=== PATIENT | male | born 1965 | race Caucasian/White ===

== ENCOUNTER 2024-08-31 13:33 | Emergency (ER) | payer OTHER, SELFPAY ==
[2024-08-31 13:48] VITALS: BP 167/104
[2024-08-31 14:12] LABS: % Basophils 0.6 % (0-2); % Eosinophils 0.4 % (0-6); % Immature Granulocytes 0.4 % (0-0.5); % Lymphocytes 10.8 % (20.5-51.1); % Monocytes 6.8 % (1.7-9.3); Absolute Basophils 0.1 10^3/uL (0-0.2); Absolute Eosinophils 0.1 10^3/uL (0-0.7); Absolute Immature Granulocytes 0.1 10^3/uL (0-0.05); Absolute Monocytes 1.2 10^3/uL (0.1-0.6); Absolute Neutrophils 14.6 10^3/uL (1.4-6.5); Hematocrit 48.7 % (39.0-52.0); Hemoglobin 15.7 g/dL (13.0-18.0); Mean Corp Hgb Conc. 32.2 g/dL (33.0-37.0); Mean Corpuscular Hgb 25.4 pg (27.0-31.0); Mean Corpuscular Volume 78.8 fL (80.0-94.0); Mean Platelet Volume 9.2 fL (7.4-10.4); Nucleated Red Blood Cells % 0 % (-); Platelet Count 398 10^3/uL (130-400); Red Blood Cell Count 6.18 10^6/uL (4.70-6.10); Red Cell Dist. Width 15.4 % (11.5-14.5); White Blood Cell Count 18.1 10^3/uL (4.8-10.8)
[2024-08-31 14:25] LABS: ALT (SGPT) 56 U/L (0-50); AST (SGOT) 41 U/L (17-59); Albumin 4.7 g/dl (3.5-5.0); Alkaline Phosphatase 114 U/L (38-126); Blood Urea Nitrogen 16 mg/dl (9-20); Calcium 9.4 mg/dl (8.4-10.2); Carbon Dioxide 26 mmol/L (22-30); Chloride 101 mmol/L (98-107); Glucose 98 mg/dl (70-99); Potassium 4.3 mmol/L (3.5-5.1); Sodium 136 mmol/L (135-145); Total Bilirubin 0.6 mg/dl (0.2-1.3); Total Protein 7.6 g/dl (6.3-8.2); eGFR > 60.00
--- NOTE | 2024-08-31 14:28 | ED.GENMED ---
ED Provider Triage
<Carter Trammell PA-C - Last Filed: 08/31/24 14:29>
-
Patient seen by provider in Triage?: Seen in Triage
Attestation: A medical screening examination has been initiated by a qualified medical provider. Based on the assessment performed at this time, it has been determined that an emergent medical condition may exist and the patient has been informed
that further medical evaluation and possible additional diagnostic testing may be needed.
HPI: 58-year-old male presenting to the ER for evaluation of urinary symptoms. Treated for urinary tract infection 2 weeks ago, completed antibiotics and felt better, symptoms started 5 days later again, this time with urethral discharge and
persistent dysuria, frequency and urgency. Patient states sexually active with only 1 partner, no concern for STI. Was on Macrobid for her first infection and completed this. Urine sent. Will send off for STI testing as well. Patient otherwise
stable
GENERAL: Alert , in no apparent distress
EYE: No visual abnormalities.
NECK: Trachea midline
ENT: No visible abnormalities.
LUNGS: No acute respiratory distress
NEUROLOGICAL: Alert and oriented
SKIN: Skin intact. No visible changes.
MUSCULOSKELETAL: Moving extremities normally
PSYCH: Normal and appropriate interaction.
This is a medical evaluation conducted in person to initiate diagnostic evaluation and provide initial therapeutics. Please see further documentation by the treating clinician.
History of Present Illness
<Carter Trammell PA-C - Last Filed: 08/31/24 14:29>
General
Chief Complaint: Urinary Symptoms
Time Seen by Provider: 08/31/24 16:56
<Kiran Jeronimo PA-C - Last Filed: 08/31/24 23:17>
History of Present Illness
History of Present Illness:
58-year-old male with no known past medical history presents to the emergency department for evaluation of dysuria, urgency, and urinary burning for the past day, noticed yellow-green discharge this morning. Was seen by his primary care physician
at the beginning of August treated empirically for UTI with ciprofloxacin 500 mg. Initial urine culture was positive for lactobacillus and follow-up urine culture 2 days ago was negative for growth. Patient denies any fevers or chills, denies any
abdominal pain. Reports urinary dribbling and difficulty with voiding as well
Review of Systems
<Kiran Jeronimo PA-C - Last Filed: 08/31/24 23:17>
Review of Systems
Allergies reviewed?: Yes
All Other Systems: ROS reviewed and negative except as documented in HPI and ROS
Phy Exam
<Kiran Jeronimo PA-C - Last Filed: 08/31/24 23:17>
Physical Exam
Physical Exam:
GEN: Well appearing, NAD, WDWN
HEENT: Oral mucosa moist, no scleral icterus
Cardiac: Regular rate
Lung: No respiratory distress, no tachypnea
Abdomen: Mildly distended, grossly nontender
MSK: No gross deformity or injuries
Skin: Good color, no pallor or jaundice, no rashes
Neuro: AO x3, moves all extremities freely
Psych: Calm, cooperative
Course
<Carter Trammell PA-C - Last Filed: 08/31/24 14:29>
Orders/Labs/Results
Orders:
Orders
08/31/24 13:58
Complete Blood Count/With Diff Urgent
Comprehensive Metabolic Panel Urgent
08/31/24 14:25
Urinalysis Urgent
Date Specimen was Collected: 08/31/24
Time Specimen was Collected: 13:54
Urine Microscopic Urgent
Date Specimen was Collected: 08/31/24
Time Specimen was Collected: 13:54
Chlamydia/GC by PCR Urgent
[facility] Source: Urine
Specimen Description:
Source:: URINE
Date Specimen was Collected: 08/31/24
Time Specimen was Collected: 14:25
08/31/24 17:37
0.9% Sodium Chloride 1000 ml [Nss] 1,000 ml IV BOLUS
CefTRIAXone [Rocephin] 1,000 mg IV NOW STA
08/31/24 17:42
Lactic Acid Q4H
Comment: CANCEL 2nd LACTIC ACID IF 1st LACTIC ACID IS LESS THAN 2
Blood Culture Q30M
[facility] Source: Blood/Venous
Specimen Description:
08/31/24 17:52
Mondragon Placement- Treatment ONCE
Reason for insertion: Acute Retention
08/31/24 17:56
Blood Culture Q30M
[facility] Source: Blood/Venous
Specimen Description:
Abnormal Lab Results
08/31/24 08/31/24
13:58 14:25
WBC 18.1 H 10^3/uL
(4.8-10.8)
RBC 6.18 H 10^6/uL
(4.70-6.10)
MCV 78.8 L fL
(80.0-94.0)
MCH 25.4 L pg
(27.0-31.0)
MCHC 32.2 L g/dL
(33.0-37.0)
RDW 15.4 H %
(11.5-14.5)
Abs Immat Gran (auto) 0.1 H 10^3/uL
(0-0.05)
Absolute Neuts (auto) 14.6 H 10^3/uL
(1.4-6.5)
Absolute Monos (auto) 1.2 H 10^3/uL
(0.1-0.6)
Neutrophils % 81.0 H %
(42.2-75.2)
Lymphocytes % 10.8 L %
(20.5-51.1)
ALT 56 H U/L
(0-50)
Urine Occult Blood 3+ A
(Negative)
Ur Leukocyte Esterase 2+ A
(Negative)
Urine WBC 60-70 A /HPF
(0-5)
Urine Bacteria Few A
(Negative)
Urine Albumin 2+ A
(Neg - Trace)
08/31/24 13:58
08/31/24 13:58
Vital Signs
Initial and Last Documented VS:
Initial Vital Signs
Temp Pulse Resp BP Pulse Ox
98.4 F 106 18 167/104 100
08/31/24 13:48 08/31/24 13:48 08/31/24 13:48 08/31/24 13:48 08/31/24 13:48
Last Documented Vital Signs
Temp Pulse Resp BP Pulse Ox
98.4 F 106 18 168/98 96
08/31/24 17:27 08/31/24 13:48 08/31/24 13:48 08/31/24 19:02 08/31/24 19:15
<Kiran Jeronimo PA-C - Last Filed: 08/31/24 23:17>
Orders/Labs/Results
Orders:
Orders
08/31/24 13:58
Complete Blood Count/With Diff Urgent
Comprehensive Metabolic Panel Urgent
08/31/24 14:25
Urinalysis Urgent
Date Specimen was Collected: 08/31/24
Time Specimen was Collected: 13:54
Urine Microscopic Urgent
Date Specimen was Collected: 08/31/24
Time Specimen was Collected: 13:54
Chlamydia/GC by PCR Urgent
[facility] Source: Urine
Specimen Description:
Source:: URINE
Date Specimen was Collected: 08/31/24
Time Specimen was Collected: 14:25
08/31/24 17:37
0.9% Sodium Chloride 1000 ml [Nss] 1,000 ml IV BOLUS
CefTRIAXone [Rocephin] 1,000 mg IV NOW STA
08/31/24 17:42
Lactic Acid Q4H
Comment: CANCEL 2nd LACTIC ACID IF 1st LACTIC ACID IS LESS THAN 2
Blood Culture Q30M
[facility] Source: Blood/Venous
Specimen Description:
08/31/24 17:52
Mondragon Placement- Treatment ONCE
Reason for insertion: Acute Retention
08/31/24 17:56
Blood Culture Q30M
[facility] Source: Blood/Venous
Specimen Description:
Abnormal Lab Results
08/31/24 08/31/24
13:58 14:25
WBC 18.1 H 10^3/uL
(4.8-10.8)
RBC 6.18 H 10^6/uL
(4.70-6.10)
MCV 78.8 L fL
(80.0-94.0)
MCH 25.4 L pg
(27.0-31.0)
MCHC 32.2 L g/dL
(33.0-37.0)
RDW 15.4 H %
(11.5-14.5)
Abs Immat Gran (auto) 0.1 H 10^3/uL
(0-0.05)
Absolute Neuts (auto) 14.6 H 10^3/uL
(1.4-6.5)
Absolute Monos (auto) 1.2 H 10^3/uL
(0.1-0.6)
Neutrophils % 81.0 H %
(42.2-75.2)
Lymphocytes % 10.8 L %
(20.5-51.1)
ALT 56 H U/L
(0-50)
Urine Occult Blood 3+ A
(Negative)
Ur Leukocyte Esterase 2+ A
(Negative)
Urine WBC 60-70 A /HPF
(0-5)
Urine Bacteria Few A
(Negative)
Urine Albumin 2+ A
(Neg - Trace)
08/31/24 13:58
08/31/24 13:58
Vital Signs
Initial and Last Documented VS:
Initial Vital Signs
Temp Pulse Resp BP Pulse Ox
98.4 F 106 18 167/104 100
08/31/24 13:48 08/31/24 13:48 08/31/24 13:48 08/31/24 13:48 08/31/24 13:48
Last Documented Vital Signs
Temp Pulse Resp BP Pulse Ox
98.4 F 106 18 168/98 96
08/31/24 17:27 08/31/24 13:48 08/31/24 13:48 08/31/24 19:02 08/31/24 19:15
<Kiran Jeronimo PA-C - Last Filed: 08/31/24 23:17>
MDM/Problems Addressed
MDM/Problems Addressed:
Patient does have significant leukocytosis however he appears clinically well, his initial tachycardia improved after Mondragon catheter placement and IV fluids. Urinalysis consistent with acute UTI. His last urine cultures were unrevealing. Will
treat with broad-spectrum antibiotics, initial dose of IV ceftriaxone given in the emergency department. Do not see indication for admission at this time. Close urology follow-up advised, will also start on tamsulosin
<Kiran Jeronimo PA-C - Last Filed: 08/31/24 23:17>
*Critical Care Note
Total Time (30-74mins, 75-104mins- exclusive of procedures): Not Applicable
ED Attending Note
<Carter Trammell PA-C - Last Filed: 08/31/24 14:29>
-
Portions of this chart may have been created with voice recognition software.� Occasional wrong word or��sound alike� substitutions may have occurred due to the inherent limitations of voice recognition software.
Discharge Plan
Departure
Patient Disposition: Home (Routine Discharge)
Date of Disposition: 08/31/24
Time of Disposition: 19:10
Patient with high blood pressure during this ER visit?: No
Discharge Problem:
Urinary tract infection, Acute urinary retention
Instructions: How to Care for Your Mondragon Catheter, Male, Urinary Tract Infection - Men
Prescriptions:
New
cefdinir 300 mg capsule
300 mg PO Q12H 10 Days Qty: 20 0RF
tamsulosin [Flomax] 0.4 mg capsule
0.4 mg PO HS Qty: 30 0RF
Referrals:
Deng Couch MD [Active] - Call in 1-3 days for appt
Washington Goodrich DO [Family Provider] -
Interventions
Interventions:
*Risk Screen - Suicide Last Done: 08/31/24 13:48
*General Assessment Last Done: 08/31/24 17:21
*Neglect/Abuse Screening Last Done: 08/31/24 17:21
ED- Fall Risk Assessment Last Done: 08/31/24 17:21
*ED COVID-19 Vaccine History Last Done: 08/31/24 17:21
*Nursing Disposition Last Done: 08/31/24 19:33
ED-Male Genitourinary Assessment Last Done: 08/31/24 17:21
Discharge Date and Time
Discharge Date/Time: 08/31/24 19:33
Print Language: NEPALESE
[2024-08-31 14:37] LABS: Urine Albumin 2+ (Neg - Trace); Urine Bilirubin Negative (Negative); Urine Character Very Cloudy (Clear); Urine Color Yellow; Urine Glucose Negative (Negative); Urine Ketone Negative (Negative); Urine Leukocyte 2+ (Negative); Urine Nitrite Negative (Negative); Urine Occult Blood 3+ (Negative); Urine Specific Gravity 1.015 (<1.030); Urine Urobilinogen Negative (Neg - 1+)
[2024-08-31 15:01] LABS: Urine Squamous Cell 0-2 /LPF (Few)
[2024-08-31 15:02] LABS: Urine Bacteria Few (Negative); Urine Red Blood Cell 0-2 /HPF (0-2); Urine White Cell 60-70 /HPF (0-5)
[2024-08-31 17:20] VITALS: BP 167/108
[2024-08-31 17:21] VITALS: BMI 26.0
[2024-08-31] MEDS: NSS 1000 IV (17:43)
[2024-08-31] MEDS: ROCEPHIN 1000 MG IV (17:58)
[2024-08-31 18:05] LABS: Lactic Acid 1.2 mmol/L (0.7-2.0)
[2024-08-31 19:02] VITALS: BP 168/98
== END 2024-08-31 19:33 | disposition home or self-care (01) ==
LOC: EMR 13:33
PROVIDERS: Emergency Medicine; Physician Assistant; EMERGENCY PHYSICIAN Emergency Medicine; FAMILY PHYSICIAN Family Medicine
DX: N39.0 Urinary tract infection, site not specified (principal); R33.8 Other retention of urine; Z87.440 Personal history of urinary (tract) infections
CPT/HCPCS: 99284; 96374; 96361; 51798; 51702; 80053; 81003; 81015; 83605; 85025; 87040; 87491; 87591